=== PATIENT | female | born 1960 | race Hispanic/Latino ===

== ENCOUNTER 2023-02-16 10:30 | Day surgery (SDC) | payer OTHER ==
[2023-02-15 16:02] VITALS: BP 137/69; PULSE 92; RESP 20
[~2023-02-16] VITALS: Ht 160 cm; Wt 91.0 kg
[~2023-02-16 10:30] MED LIST: ATOR40TA71 PO; CAND16TA28 PO
[2023-02-16 10:40] VITALS: BP 90/72; PULSE 90; RESP 16
[2023-02-16 11:25] VITALS: BP 98/56; PULSE 86; RESP 16
[2023-02-16] MEDS ORDERED: PROPOFOL 10 MG/ML 20ML VIAL IV ONE (14:38)
[2023-02-16] MEDS ORDERED: LIDOCAINE PF 100MG/5ML (2%) SYRINGE 5ML ONE (14:40)
== END 2023-02-16 15:36 | disposition home or self-care (01) ==
LOC: DAH 10:30 → ENDO 10:30
PROVIDERS: ATTEND Internal Medicine Gastroenterology
DX: R10.13 Epigastric pain (principal); K29.70 Gastritis, unspecified, without bleeding; K29.00 Acute gastritis without bleeding; K21.00 Gastro-esophageal reflux disease with esophagitis, without bleeding; K44.9 Diaphragmatic hernia without obstruction or gangrene; I10 Essential (primary) hypertension; E11.9 Type 2 diabetes mellitus without complications; E78.5 Hyperlipidemia, unspecified; Z83.3 Family history of diabetes mellitus; Z82.49 Family history of ischemic heart disease and other diseases of the circulatory system; Z83.438 Family history of other disorder of lipoprotein metabolism and other lipidemia; Z87.891 Personal history of nicotine dependence; Z79.899 Other long term (current) drug therapy; Z98.891 History of uterine scar from previous surgery; Z98.890 Other specified postprocedural states
CPT/HCPCS: 82948; 88305; 88312; 43239; J2001; J2704; A4620; A4215 ×2; A4223; A7002; A4222; A4221; A4663; A4216; J7030; A4606; J3490